=== PATIENT | female | born 1975 | race Hispanic/Latino ===

== ENCOUNTER 2017-09-04 21:58 | Emergency (ER) | payer BC ==
[2017-09-04 22:33] VITALS: BP 147/91; PULSE 64; RESP 19; TEMP 98.6; O2SAT 98
[2017-09-04] MEDS ORDERED: Lidocaine 1% Inj (20ml) ONE (22:48)
--- NOTE | 2017-09-04 22:51 | ED PDOC ---
HPI: General Adult Time Seen by Provider: 09/04/17 22:39 Chief Complaint (Nursing): Abnormal Skin Integrity Chief Complaint (Provider): left hand laceration History Per: Patient Additional Complaint(s): 41-year-old right-hand dominant female presents with laceration to left hand sustained when she was trying to cut open a can and accidentally cut her hand. Patient apply pressure dressing and came to ED. Tetanus up-to-date. PMD: In [place] Past Medical History Reviewed: Historical Data, Nursing Documentation, Vital Signs Vital Signs: Last Vital Signs Temp 98.6 F 09/04/17 22:32 Pulse 64 09/04/17 22:32 Resp 19 09/04/17 22:32 BP 147/91 H 09/04/17 22:32 Pulse Ox 98 09/04/17 22:51 - Medical History PMH: No Chronic Diseases - Family History Family History: States: No Known Family Hx - Living Arrangements Living Arrangements: With Family - Social History Current smoker - smoking cessation education provided: No Alcohol: None Drugs: Denies - Immunization History Hx Tetanus Toxoid Vaccination: Yes - Allergies Allergies/Adverse Reactions: Allergies Allergy/AdvReac Type Severity Reaction Status Date / Time No Known Allergies Allergy Verified 09/04/17 22:50 Review of Systems ROS Statement: Except As Marked, All Systems Reviewed And Found Negative Musculoskeletal: Positive for: Other (left hand laceration) Physical Exam - Reviewed Nursing Documentation Reviewed: Yes Vital Signs Reviewed: Yes - Physical Exam Appears: Positive for: Well Skin: Positive for: Normal Color. Negative for: Rash Eye Exam: Positive for: Normal appearance Extremity: Positive for: Other (2 cm laceration noted to interdigital space between left first and second digits, no active bleeding, full range of motion of all digits, neurovascular intact) Neurologic/Psych: Positive for: Alert, Oriented - ECG O2 Sat by Pulse Oximetry: 98 Pulse Ox Interpretation: Normal Medical Decision Making Medical Decision Makin41 year old with left hand laceration Plan: Lac repair - patient agrees to lac repair by script writer Procedure Note: Under sterile conditions laceration to left hand was anesthetized with 8 mL of 1% lidocaine without epinephrine, good anesthesia was achieved, wound was irrigated copiously with normal saline and Betadine, wound was explored for foreign bodies, no foreign bodies noted. 5-0 running uninterrupted nylon sutures used to repair wound, good wound approximation was achieved, good bleeding control was achieved, procedure tolerated well by patient with no acute complications. Bacitracin and nonstick gauze applied to affected area. Advised NSAIDs for pain, wound check 2-3 days and suture removal 10-14 days. Disposition - Clinical Impression Clinical Impression: Hand laceration - Patient ED Disposition Is Patient to be Admitted: No Counseled Patient/Family Regarding: Diagnosis, Need For Followup - Disposition Referrals: [facility] [Outside] Disposition: Routine/Home Disposition Time: 23:26 Condition: STABLE Additional Instructions: Keep wound clean and dry. Take Tylenol or Advil for pain as needed. Wound check 2-3 days, suture removal 10-14 days. Instructions: Laceration Repair With Stitches (DC) Forms: [employer] ([place])
== END 2017-09-04 23:57 | disposition home or self-care (01) ==
LOC: H.ER 21:58
DX: S61.412A Laceration without foreign body of left hand, initial encounter (principal); W26.8XXA Contact with other sharp object(s), not elsewhere classified, initial encounter